=== PATIENT | female | born 1940 | race African-American/Black ===

== ENCOUNTER 2017-10-31 21:51 | Inpatient (IN) | payer OTHER ==
[~2017-10-31] VITALS: Ht 162.6 cm; Wt 73.5 kg
[2017-10-31] MEDS ORDERED: METHYLPREDNISOLONE SOD SUCC 125 MG/2 ML VIAL IV STA (22:32)
[2017-10-31] MEDS ORDERED: ALBUTEROL (0.083%) 2.5MG/3ML NEB HHN STA (22:32)
[2017-10-31] MEDS ORDERED: IPRATROPIUM BROMIDE (0.02%) 0.5MG/2.5ML NEB HHN STA (22:32)
[2017-10-31] MEDS ORDERED: SODIUM CHLORIDE 0.9% 1,000 ML IV ONE (22:32)
[2017-10-31] MEDS ORDERED: LEVOFLOXACIN 750MG PREMIX 150 ML IV ONE (22:45)
[2017-10-31 23:04] LABS: BG BASE EXCESS 0.4 mmol/L (-2.0-2.0); BG CARBOXYHEMOGLOBIN 4.3 % (0.5-1.5); BG DEOXYHEMOGLOBIN 5.1 % (0.0-5.0); BG FRACTION INSPIRED OXYGEN 28; BG HCO3 ACT 25.3 mmol/L (22.0-26.0); BG METHEMOGLOBIN 0.2 % (0.0-1.5); BG OXYGEN SATURATION 94.7 % (92.0-98.5); BG OXYHEMOGLOBIN 90.4 % (94.0-97.0); BG PCO2 41.7 mmHg (35.0-45.0); BG PO2 72.6 mmHg (75.0-100.0); BG SAMPLE SITE RIGHT RADIAL; BG TOTAL HEMOGLOBIN 13.1 g/dL (12.0-18.0); BG VENT MODE NASAL CANNULA
[2017-10-31 23:23] LABS: BASOPHILS % 0.6 % (0.0-2.0); EOSINOPHILS % 3.1 % (0.0-5.0); HEMATOCRIT. 38.9 % (36.0-48.0); HEMOGLOBIN. 12.5 g/dL (12.0-16.0); LYMPHOCYTES % 24.9 % (20.0-50.0); MEAN CORPUSCULAR HEMOGLOBIN 29.3 pg (28.0-32.0); MEAN CORPUSCULAR VOLUME 90.9 fL (81.0-99.0); MEAN PLATELET VOLUME 8.3 fl (7.4-10.4); MONOCYTES % 9.3 % (2.0-8.0); NEUTROPHILS % 62.1 % (40.0-76.0); PLATELET 230 x1000/uL (130-400); RED BLOOD CELL COUNT 4.28 mill/uL (4.2-5.4); RED CELL DISTRIBUTION WIDTH 19.1 % (11.6-14.6)
[2017-11-01] MEDS ORDERED: ONDANSETRON HCL 4MG/2ML VIAL IV STA (00:02)
[2017-11-01] MEDS ORDERED: MORPHINE SULFATE 4 MG/ML CPJ (NOT FOR IM USE) IV STA (00:02)
[2017-11-01] MEDS ORDERED: INSULIN REGULAR (HUMULIN R) 300UNITS/3ML SUBCUT ONE (02:30)
[2017-11-01 03:00] VITALS: BP 145/67
[2017-11-01 03:24] VITALS: BP 145/67
[2017-11-01] MEDS ORDERED: DIPHENHYDRAMINE 50MG/ML VIAL IV PRN (04:00)
[2017-11-01] MEDS ORDERED: ENOXAPARIN 40MG/0.4ML SYR SUBCUT SCH (04:00)
[2017-11-01] MEDS ORDERED: DEXTROSE 50% WATER 50ML SYRINGE IV PRN (04:00)
[2017-11-01] MEDS ORDERED: MAGNESIUM/ALUMINUM HYDROXIDE/SIMETHICONE 30ML UDC PO PRN (04:00)
[2017-11-01] MEDS ORDERED: CLONIDINE 0.1MG TABLET PO PRN (04:00)
[2017-11-01] MEDS ORDERED: IPRATROPIUM/ALBUTEROL 0.5-3(2.5)MG/3ML NEB INH PRN (04:00)
[2017-11-01] MEDS ORDERED: ONDANSETRON HCL 4MG/2ML VIAL IV PRN (04:00)
[2017-11-01] MEDS: INSULIN LISPRO 100 UNITS/ML SUBCUT SCH ×5 (04:44→21:43)
[2017-11-01] MEDS: ENOXAPARIN 80MG/0.8ML SYR SUBCUT SCH (05:04)
[2017-11-01] MEDS: SODIUM CHLORIDE 0.9% INJ 3ML FLUSH IVF SCH ×3 (05:04→21:43)
[2017-11-01] MEDS: MORPHINE SULFATE 4 MG/ML CPJ (NOT FOR IM USE) IV PRN ×4 (05:05→22:39)
[2017-11-01] MEDS: INSULIN GLARGINE UD 100 UNITS/ML SYR SUBCUT SCH (05:52)
[2017-11-01] MEDS: BLOOD SUGAR DIAGNOSTIC STRIP TEST SCH ×4 (06:44→21:43)
[2017-11-01] MEDS ORDERED: INSULIN LISPRO 100 UNITS/ML SUBCUT SCH (07:40)
[2017-11-01 08:00] VITALS: BP 117/53
[2017-11-01] MEDS: BUDESONIDE 0.5MG/2ML NEB HHN SCH ×2 (08:27→20:57)
[2017-11-01] MEDS: IPRATROPIUM/ALBUTEROL 0.5-3(2.5)MG/3ML NEB HHN SCH ×3 (08:27→20:57)
[2017-11-01] MEDS ORDERED: INSULIN GLARGINE UD 100 UNITS/ML SYR SUBCUT SCH (10:00)
[2017-11-01] MEDS: FUROSEMIDE 40MG TABLET PO SCH (11:29)
[2017-11-01] MEDS: BENZONATATE 100MG CAPSULE PO SCH ×2 (11:30→18:28)
[2017-11-01 12:00] VITALS: BP 98/46
[2017-11-01] MEDS: GUAIFENESIN 200MG/10ML SUGAR FREE UDC PO PRN ×2 (12:57→22:01)
[2017-11-01 16:52] VITALS: BP 98/45
[2017-11-01] MEDS ORDERED: ENOXAPARIN 60MG/0.6ML SYR SUBCUT SCH (19:45)
[2017-11-01 20:07] VITALS: BP 108/46
[2017-11-01] MEDS: GABAPENTIN 100MG CAPSULE PO SCH (21:41)
[2017-11-01] MEDS: ASPIRIN 81MG EC TABLET PO SCH (21:41)
[2017-11-01] MEDS: PANTOPRAZOLE 40MG DR TABLET PO SCH (21:42)
[2017-11-01] MEDS: GUAIFENESIN 600MG ER TABLET PO SCH (21:42)
[2017-11-02] VITALS (8 sets, daily range): BP systolic 102–121; BP diastolic 45–66
[2017-11-02] MEDS: IPRATROPIUM/ALBUTEROL 0.5-3(2.5)MG/3ML NEB HHN SCH ×4 (00:20→19:53)
[2017-11-02] MEDS: BENZONATATE 100MG CAPSULE PO SCH ×3 (03:07→19:36)
[2017-11-02] MEDS: GABAPENTIN 100MG CAPSULE PO SCH (05:20)
[2017-11-02] MEDS: MORPHINE SULFATE 4 MG/ML CPJ (NOT FOR IM USE) IV PRN ×4 (05:20→20:05)
[2017-11-02] MEDS: SODIUM CHLORIDE 0.9% INJ 3ML FLUSH IVF SCH ×3 (05:20→21:25)
[2017-11-02] MEDS: ENOXAPARIN 80MG/0.8ML SYR SUBCUT SCH (05:32)
[2017-11-02] MEDS: BLOOD SUGAR DIAGNOSTIC STRIP TEST SCH ×4 (06:25→21:24)
[2017-11-02] MEDS: INSULIN LISPRO 100 UNITS/ML SUBCUT SCH ×4 (06:25→20:51)
[2017-11-02 06:35] LABS: BASOPHILS % 0.2 % (0.0-2.0); EOSINOPHILS % 0.1 % (0.0-5.0); HEMATOCRIT. 32.6 % (36.0-48.0); HEMOGLOBIN. 10.8 g/dL (12.0-16.0); LYMPHOCYTES % 14.9 % (20.0-50.0); MEAN CORPUSCULAR HEMOGLOBIN 29.8 pg (28.0-32.0); MEAN CORPUSCULAR VOLUME 89.7 fL (81.0-99.0); MEAN PLATELET VOLUME 8.4 fl (7.4-10.4); MONOCYTES % 7.6 % (2.0-8.0); NEUTROPHILS % 77.2 % (40.0-76.0); PLATELET 199 x1000/uL (130-400); RED BLOOD CELL COUNT 3.63 mill/uL (4.2-5.4); RED CELL DISTRIBUTION WIDTH 18.5 % (11.6-14.6)
[2017-11-02] MEDS: ASPIRIN 81MG EC TABLET PO SCH (09:02)
[2017-11-02] MEDS: FUROSEMIDE 40MG TABLET PO SCH (09:02)
[2017-11-02] MEDS: GUAIFENESIN 600MG ER TABLET PO SCH ×2 (09:02→21:24)
[2017-11-02] MEDS: PANTOPRAZOLE 40MG DR TABLET PO SCH (09:02)
[2017-11-02] MEDS: INSULIN GLARGINE UD 100 UNITS/ML SYR SUBCUT SCH (09:03)
[2017-11-02] MEDS: BUDESONIDE 0.5MG/2ML NEB HHN SCH ×2 (09:38→19:53)
[2017-11-02] MEDS ORDERED: MAGNESIUM 2 G PREMIX 50 ML IV SCH (11:00)
[2017-11-02] MEDS ORDERED: FUROSEMIDE 40MG/4ML VIAL IVP SCH (12:30)
[2017-11-02] MEDS: ACETAMINOPHEN 325MG TABLET PO PRN ×2 (12:38→19:38)
[2017-11-02 18:15] LABS: HEMATOCRIT 36.1 % (36.0-48.0); HEMOGLOBIN 11.7 g/dL (12.0-16.0)
[2017-11-02] MEDS ORDERED: PREGABALIN 75MG CAPSULE PO SCH (21:00)
[2017-11-02] MEDS: GUAIFENESIN 200MG/10ML SUGAR FREE UDC PO PRN (21:24)
[2017-11-03] MEDS ORDERED: FAMOTIDINE 20MG TABLET PO SCH (09:00)
[2017-11-03] MEDS ORDERED: VITAMINS A AND D OINT TUBE TOP SCH (09:00)
== END 2017-11-02 21:53 | disposition short-term general hospital (02) | DRG 291 ==
LOC: ER 23:18 → 8WST 11-01 01:56 → EDBEDREQTM 11-01 01:59 → EDBEDREQ 11-01 01:59 → ENRESERV 11-01 02:04
PROVIDERS: ADMIT Internal Medicine; ATTEND Internal Medicine
DX: I13.0 Hypertensive heart and chronic kidney disease with heart failure and stage 1 through stage 4 chronic kidney disease, or unspecified chronic kidney disease (principal); J96.01 Acute respiratory failure with hypoxia; I50.33 Acute on chronic diastolic (congestive) heart failure; J44.0 Chronic obstructive pulmonary disease with (acute) lower respiratory infection; E11.22 Type 2 diabetes mellitus with diabetic chronic kidney disease; E11.42 Type 2 diabetes mellitus with diabetic polyneuropathy; I35.0 Nonrheumatic aortic (valve) stenosis; I25.10 Atherosclerotic heart disease of native coronary artery without angina pectoris; N18.9 Chronic kidney disease, unspecified; J20.9 Acute bronchitis, unspecified; J06.9 Acute upper respiratory infection, unspecified; E11.51 Type 2 diabetes mellitus with diabetic peripheral angiopathy without gangrene; E11.65 Type 2 diabetes mellitus with hyperglycemia; L84 Corns and callosities; L85.3 Xerosis cutis; Z87.891 Personal history of nicotine dependence; Z86.73 Personal history of transient ischemic attack (TIA), and cerebral infarction without residual deficits; Z95.1 Presence of aortocoronary bypass graft; I25.2 Old myocardial infarction; Z89.612 Acquired absence of left leg above knee; Z86.718 Personal history of other venous thrombosis and embolism
CPT/HCPCS: 36415; 36600; 71045; 80048; 82375; 82805; 82962; 83036; 83605; 83735; 83880; 84484; 85014; 85018; 85025; 87040; 93005; 93306; 93971; 94640; 96365; 96366; 96372; 96375; 99285; J1650; J1815; J1940; J1956; J2270; J2405; J2930; J3475; J7030; J7611; J7620; J7626